=== PATIENT | female | born 1990 | race Caucasian/White ===

== ENCOUNTER → 2023-05-25 14:27 | Outpatient (BNVA) | payer MEDICAID, SELFPAY | PROVIDERS: Visit Provider Obstetrics & Gynecology | DX: Z34.90 Encounter for supervision of normal pregnancy, unspecified, unspecified trimester (principal); Z3A.00 Weeks of gestation of pregnancy not specified | CPT/HCPCS: 81000 ==

== ENCOUNTER → 2023-06-03 09:56 | Outpatient (BNVA) | payer MEDICAID, SELFPAY | PROVIDERS: Referring Provider Obstetrics & Gynecology; Visit Provider Obstetrics & Gynecology | DX: Z34.90 Encounter for supervision of normal pregnancy, unspecified, unspecified trimester (principal); Z3A.00 Weeks of gestation of pregnancy not specified | CPT/HCPCS: 76801 ==

== ENCOUNTER → 2023-06-24 08:55 | Outpatient (BNVA) | payer MEDICAID, SELFPAY | PROVIDERS: Visit Provider Obstetrics & Gynecology | DX: Z34.00 Encounter for supervision of normal first pregnancy, unspecified trimester (principal) | CPT/HCPCS: 80307; 84315; 84443; 85027; 86592; 86762; 86803; 86850; 86900; 87086; 87340; 87491; 87591; 87624; 87806 ==

== ENCOUNTER → 2023-07-20 09:55 | Outpatient (BNVA) | payer MEDICAID, SELFPAY | PROVIDERS: Visit Provider Nurse Practitioner Women's Health | DX: Z34.00 Encounter for supervision of normal first pregnancy, unspecified trimester (principal) | CPT/HCPCS: 80307; 82950; 84315; 87086 ==

== ENCOUNTER 2023-07-23 09:50 | Outpatient (CLI) | payer MEDICAID, SELFPAY ==
[2023-07-27 18:01] LABS: AFP Calculted Gestational Age 15.9 weeks; AFP Donor Age: Egg Retrieval NOT GIVEN; AFP Donor Egg NO; AFP EDD Gestational Age Meth ULTRASOUND; AFP Hx of Neural Tube Defects NO; AFP Insulin Depend Diabetic NO; AFP Maternal Weight 184 lbs; AFP Mother's Ethnic Origin CAUCASIAN; AFP Number of Fetuses 1; AFP Prev Pregancy Down Synd NO; AFP Repeat Specimen NO; Alpha-1-Fetoprotein 23.8 ng/mL; Alpha-1-Fetoprotein MoM 0.83; Risk for Open Neural Tube Defe <1 IN 5000
== END 2023-07-23 09:51 | disposition home or self-care (01) ==
PROVIDERS: PCP Obstetrics & Gynecology; Visit Provider Nurse Practitioner Women's Health
DX: Z34.00 Encounter for supervision of normal first pregnancy, unspecified trimester (principal)
CPT/HCPCS: 36415; 82105

== ENCOUNTER → 2023-08-18 09:35 | Outpatient (BNVA) | payer MEDICAID, SELFPAY | PROVIDERS: Visit Provider Obstetrics & Gynecology | DX: Z34.92 Encounter for supervision of normal pregnancy, unspecified, second trimester (principal); Z3A.17 17 weeks gestation of pregnancy | CPT/HCPCS: 76815 ==

== ENCOUNTER → 2023-09-14 09:10 | Outpatient (BNVA) | payer MEDICAID, SELFPAY | PROVIDERS: Visit Provider Obstetrics & Gynecology | DX: Z34.00 Encounter for supervision of normal first pregnancy, unspecified trimester (principal); Z3A.21 21 weeks gestation of pregnancy | CPT/HCPCS: 76805 ==

== ENCOUNTER → 2023-10-13 07:58 | Outpatient (BNVA) | payer MEDICAID, SELFPAY | PROVIDERS: Visit Provider Obstetrics & Gynecology | DX: Z34.92 Encounter for supervision of normal pregnancy, unspecified, second trimester (principal); Z3A.21 21 weeks gestation of pregnancy | CPT/HCPCS: 76816; 84315 ==

== ENCOUNTER → 2023-10-27 09:53 | Outpatient (BNVA) | payer MEDICAID, SELFPAY | PROVIDERS: Visit Provider Obstetrics & Gynecology | DX: Z34.02 Encounter for supervision of normal first pregnancy, second trimester (principal); Z3A.00 Weeks of gestation of pregnancy not specified | CPT/HCPCS: 82950; 84315; 85025 ==

== ENCOUNTER → 2023-11-23 08:46 | Outpatient (BNVA) | payer MEDICAID, SELFPAY | PROVIDERS: Visit Provider Obstetrics & Gynecology | DX: Z34.93 Encounter for supervision of normal pregnancy, unspecified, third trimester (principal); Z3A.35 35 weeks gestation of pregnancy | CPT/HCPCS: 76816; 84315 ==

== ENCOUNTER → 2023-12-16 08:08 | Outpatient (BNVA) | payer MEDICAID, SELFPAY | PROVIDERS: Visit Provider Nurse Practitioner Women's Health | DX: Z34.02 Encounter for supervision of normal first pregnancy, second trimester (principal) | CPT/HCPCS: 84315; 87081 ==

== ENCOUNTER 2023-12-17 07:43 | Outpatient (CLI) | payer MEDICAID, SELFPAY ==
[2023-12-17 07:55] VITALS: BMI 34.1
[2023-12-17 08:01] VITALS: BP 120/68; PULSE 75
[2023-12-17 08:21] VITALS: BP 108/67; PULSE 71
[2023-12-17] MEDS: acetaminophen 500 mg Tablet 1000 MG PO (08:22)
[2023-12-17 08:41] VITALS: BP 118/71; PULSE 81
[2023-12-17] MEDS: NIFEdipine ER (24 hr) 30 mg Tablet PO (08:41)
[2023-12-17 09:00] VITALS: BP 118/71; PULSE 81
== END 2023-12-17 09:00 | disposition home or self-care (01) ==
LOC: OPOB 07:48 → OBGYN 07:49
PROVIDERS: Visit Provider Obstetrics & Gynecology
DX: O26.899 Other specified pregnancy related conditions, unspecified trimester (principal); Z3A.00 Weeks of gestation of pregnancy not specified; M54.9 Dorsalgia, unspecified
CPT/HCPCS: 59025; 99211

== ENCOUNTER → 2023-12-21 09:57 | Outpatient (BNVA) | payer MEDICAID, SELFPAY | PROVIDERS: Visit Provider Obstetrics & Gynecology | DX: Z34.90 Encounter for supervision of normal pregnancy, unspecified, unspecified trimester (principal); Z3A.00 Weeks of gestation of pregnancy not specified | CPT/HCPCS: 81000 ==

== ENCOUNTER 2024-01-25 14:40 | Outpatient (CLI) | payer MEDICAID, SELFPAY ==
[2024-01-25 14:40] VITALS: BMI 37.8
[2024-01-25 15:16] VITALS: BP 115/75; PULSE 88
[2024-01-25 15:18] VITALS: BP 115/75; PULSE 88; RESP 16
[2024-01-25 16:16] VITALS: BP 113/75; PULSE 86
[2024-01-25 16:39] LABS: Basophils % 0.4 %; Eosinophils % 0.5 %; Hematocrit 36.5 % (36-47); Lymphocytes % 27.3 %; Mean Corpuscular Hemoglobin 31.5 pg (27-33); Mean Corpuscular Volume 92.6 fl (85-98); Mean Platelet Volume 10.6 fL (7.4-10.4); Monocytes # 0.4 10^3/uL (0.2-0.9); Monocytes % 4.8 %; Neutrophils # 4.91 10^3/uL (1.8-7.7); Neutrophils % 66.7 %; Nucleated Red Blood Cells % 0 %; Platelet Count 282 10^3/cmm (157-399); Red Blood Count 3.94 10^6/uL (3.85-5.65); White Blood Count 7.36 10^3/uL (3.29-11.43)
--- NOTE | 2024-01-25 16:56 | PC.NURSE ---
Dr jackson arrived to talk with patient and get consent for induction of labor with the use of cytotec and consult on the induction of labor, dr jackson gave the patient the options of being induced or go home and be induced at a later date, jose de jesus decided to return home and come back on a later date
[2024-01-25 17:12] VITALS: BP 120/78; PULSE 127
== END 2024-01-25 17:13 | disposition home or self-care (01) ==
LOC: OPOB 14:45 → OBGYN 14:47 → OPOB 14:56 → OBGYN 15:01 → OPOB 16:50 → OBGYN 16:56
PROVIDERS: Visit Provider Obstetrics & Gynecology
DX: O26.899 Other specified pregnancy related conditions, unspecified trimester (principal); Z3A.00 Weeks of gestation of pregnancy not specified
CPT/HCPCS: 36415; 59025; 85025; 86850; 86900; 99211

== ENCOUNTER 2024-01-30 07:16 | Inpatient (IN) | payer MEDICAID, SELFPAY ==
[2024-01-30] VITALS (58 sets, daily range): BP systolic 106–149; BP diastolic 52–81; PULSE 64–106; TEMP 36–36.5; O2SAT 90–98; BMI 34.1
[2024-01-30] MEDS: dextrose 5%-lactated ringers 1,000 ML 125 ML IV (08:43)
[2024-01-30] MEDS: miSOPROStol 100 mcg tablet 25 MCG VAGINAL ×2 (08:43→16:45)
[2024-01-30] MEDS: acetaminophen 325 mg Tablet 650 MG PO (18:43)
--- NOTE | 2024-01-30 21:34 | PM.OBGYHP ---
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 Risk and benefits have been reviewed including the possibility of nonreassuring monitoring which may require section delivery. Patient's records has been reviewed. Patient admits to smoking 1/2 pack cigarettes per day. External monitoring?reassuring After completion of 4 hours of the second Cervidil placement patient was examined at 9 PM and noted to be 7 cm by nursing staff. Upon my arrival patient's cervix was reexamined with an anterior lip with bulging membranes. AROM performed with clear fluid noted. Reviewed delivery and the possibility that patient may not get an epidural due to a section currently going on. Patient understands. Present Details : 1 Para: 0 Labs Rubella: Immune RPR: Negative GBS: Negative L&D/Induction Specific History Other Information: Cervidil Review of Systems General: Reports: 10 or more systems reviewed and unremarkable except in HPI and below Medications/Allergies Home Medications Medication Instructions Recorded Confirmed Last Taken Type prenat.vits,adamaris,utn-[id number] 1 tab PO DAILY 05/25/23 01/25/24 Unknown History Allergies Allergy/AdvReac Type Severity Reaction Status Date / Time codeine Allergy Intermediate Halucinatio Verified 01/30/24 08:58 ns PFSH FUNERAL ARRANGER PFSH: Family History Denies family history of Colon cancer Ovarian cancer Diabetes Heart disease Hyperlipidemia Breast cancer Hypertension Uterine cancer Thyroid disease Stroke Other Female Reproductive History: Hx Age of Menarche: 12 Duration of menses: 6-7 days Date of Last Menstrual Period: 04/03/23 Cycle Length: 28 to 30 days Menstrual flow: normal/abnormal: normal Sexual History: Are you sexually active?: Yes More than 5 What is your sexual preference?: Heterosexual History History History 1 Term Miscarriages/Ectopic Living Children Care EMILY Calculator Estimated Delivery Date Method Current WG Current Estimate 01/23/24 Ultrasound #1 41w 0d Other Estimates 01/08/24 LMP (Certain) 43w 1d 01/20/24 Ultrasound #2 41w 3d Expected Delivery Route/Plan Vaginal Vitals/I&O/Wt Last Vital Signs Temp 96.8 F L 01/30/24 16:45 Pulse 82 01/30/24 21:25 BP 109/62 01/30/24 21:25 O2 Del Method Room Air 01/30/24 17:16 01/30/24 01/30/24 01/30/24 06:59 14:59 22:59 Intake Total 240 / 240 Balance 240 / 240 Weight last 48 hrs Weight 90.265 kg Physical Exam Const: COMMON NORMALS: no acute distress, patient oriented x3, healthy appearing, alert and well nourished HENMT: COMMON NORMALS: normocephalic, moist oral mucous membranes and dentition normal Resp: COMMON NORMALS: clear to auscultation bilaterally Cardio: COMMON NORMALS: regular rate and regular rhythm Back/Pelvis: OTHER: Abdomen?soft, gravid, negative CVA tenderness Pelvic exam as above Extremity: COMMON NORMALS: normal to inspection, no clubbing, cyanosis or edema and no calf tenderness Neuro: COMMON NORMALS: patient oriented x3, CN's II-XII intact bilaterally, moves all extremities and deep tendon reflexes 2+ bilaterally Results Labs OB ([facility]): Obstetrics US 11/23/23 Blood Type A Positive 01/30/24 Antibody Screen Negative 01/30/24 Hct 36.5 % (36-47) 01/25/24 Hgb 12.40 g/dL (11.27-16.99) 01/25/24 Rho(D) Type Rh positive 01/30/24 Plt Count 282 10^3/cmm (157-399) 01/25/24 Hep Bs Antigen Non-reactive (Nonreactive) 06/24/23 Hepatitis C Antibody Non-reactive (Nonreactive) 06/24/23 Rubella IgG Antibody 47.1 IU/mL (0.0-10.0) H 06/24/23 RPR Nonreactive (Nonreactive) 06/24/23 HIV 1&2 Ab & HIV 1 Ag Non-reactive (Non-Reactiv) 06/24/23 TSH 0.49 uIU/mL (0.27-4.20) 06/24/23 C.trachomatis RNA (TMA) Not detected (NOT DETECTED) 06/24/23 N.gonorrhoeae RNA (TMA) Not detected (NOT DETECTED) 06/24/23 T. vaginalis Amp RNA Not detected (NOT DETECTED) 06/24/23 Chlamydia/GC Comment See note 06/24/23 Cystic Fibrosis Screen Negative 06/24/23 Gest Glucose Tolerance 91 mg/dL (70-139) 10/27/23 Urine Opiates Screen Negative ng/mL (Negative) 07/20/23 Ur Barbiturates Screen Negative ng/mL (Negative) 07/20/23 Ur Phencyclidine Scrn Negative ng/mL (Negative) 07/20/23 Ur Amphetamines Screen Negative ng/mL (Negative) 07/20/23 U Benzodiazepines Scrn Negative ng/mL (Negative) 07/20/23 Urine Cocaine Screen Negative ng/mL (Negative) 07/20/23 U Marijuana (THC) Screen Negative ng/mL (Negative) 07/20/23 Micro Urine Specimen 07/20/23 Pap Smear Interpret See note 06/24/23 A&P Assessment and plan (1) Supervision of normal first : GBS negative Qualifiers: Trimester: second trimester Qualified Code(s): Z34.02 - Encounter for supervision of normal first , second trimester (2) Advanced maternal age (AMA) in : (3) 41 weeks gestation of : Plan Patient was admitted to labor and delivery for cervical ripening/induction of labor. Attestations Medical Necessity Statement*: Patient admitted to labor and delivery for cervical ripening/induction of labor. Coding Level of Care Code Acute Code for Chg Fwd Diagnoses Encounter for supervision of normal first in second trimester Z34.02 Trimester: second trimester Advanced maternal age (AMA) in 41 weeks gestation of O48.0; Z3A.41
[2024-01-30] MEDS: lactated ringers 1,000 ML 999 ML IV ×2 (21:42→23:30)
[2024-01-30] MEDS: ROPivacaine syringe 100 MG/50 ML SYRINGE 10 MG EPIDURAL (22:20)
--- NOTE | 2024-01-30 22:24 | ANES.PREANE2 ---
Pre-Anesthetic Assessment Height/Weight: Height 1.63 m Weight 90.265 kg Temp Pulse BP Pulse Ox O2 Del Method 96.8 F L 74 128/58 97 Room Air 01/30/24 16:45 01/30/24 22:20 01/30/24 22:20 01/30/24 22:20 01/30/24 17:16 Social Tobacco and No alcohol Exam alert and oriented x 3 Pulmonary smoker Anesthetic Plan ASA status: 2 Anesthesia: Regional (specify below) (Labor Epidural) Medications/Allergies Home Medications Medication Instructions Recorded Confirmed Last Taken Type prenat.vits,adamaris,djz-hvik-cjvce 1 tab PO DAILY 05/25/23 01/25/24 Unknown History Allergies Allergy/AdvReac Type Severity Reaction Status Date / Time codeine Allergy Intermediate Halucinatio Verified 01/30/24 08:58 ns Current Medications Generic Name Dose Route Start Last Admin Trade Name Freq PRN Reason Stop Dose Admin Acetaminophen 650 mg 01/30/24 07:20 01/30/24 18:43 Acetaminophen 325 Mg Tablet PO 650 mg Q6H PRN Administration Mild pain or temp > 100.4 Dextrose/Lactated Ringer's 1,000 mls @ 125 mls/hr 01/30/24 07:30 01/30/24 08:43 Dextrose 5%-Lactated Ringers IV 125 mls/hr .Q8H STEVE Administration Lactated Ringer's 1,000 mls @ 999 mls/hr 01/30/24 21:02 01/30/24 21:42 Lactated Ringers IV 999 mls/hr .Q1H1M PRN Administration See label comments PFSH Anesthesia Family History Denies family history of Colon cancer Ovarian cancer Diabetes Heart disease Hyperlipidemia Breast cancer Hypertension Uterine cancer Thyroid disease Stroke Female Reproductive History : 1 Data Anesthesia Blood Bank 01/30/24 07:50 Blood Type A Positive Rho(D) Type Rh positive Antibody Screen Negative Cardiac Studies: No Data to Display
--- NOTE | 2024-01-30 22:39 | P.ANES_ITS ---
Anesthesia Procedures Procedure/Date: 01/30/24 Epidural: Time Out Performed: Yes Consents Signed: Procedure Consent Consent: requested by attending/covering physician, from patient, risks and benefits reviewed and patient agrees to proceed Lumbar Level: L4-L5 Epidural position: sitting Epidural procedure: sterile prep of area, 1% lidocaine to numb the area, 18 g needle, negative for paresthesia passed, neg for paresthesia, test dose given, 1.5% xylocaine 1:200k epi, 0.2% Ropivacaine bolus ml (5), placed PCEA, no systemic response, sterile dressing applied, L.U.D. no apparent complications and 0.2% Ropiavacaine @ mls/hr (10) Additional Comments: AVILA at 5cm, catheter easily threaded to 5cm in the space. VS monitored and remained stable throughout. Pt reporting decrease in pain with contractions. Pt educated on CHUTE LOADER.
--- NOTE | 2024-01-30 23:34 | P.PN_ITS ---
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 Will augment with Pitocin for more effective contractions. Pt agrees. EFM- Cat 1. Labor: Station: -2 Amniotic Membrane Status: Ruptured Monitor Mode: Palpation Contraction Pattern: Regular Status: Category I Vitals/I&O/Wt Last Vital Signs Temp 96.8 F L 01/30/24 16:45 Pulse 86 01/30/24 23:26 BP 134/64 01/30/24 23:26 Pulse Ox 95 01/30/24 23:00 O2 Del Method Room Air 01/30/24 17:16 01/30/24 01/30/24 01/31/24 14:59 22:59 06:59 Intake Total 1240 / 1240 Balance 1240 / 1240 Weight last 48 hrs Weight 90.265 kg A&P Assessment and plan (1) 41 weeks gestation of : (2) Advanced maternal age (AMA) in : (3) Supervision of normal first : Qualifiers: Trimester: second trimester Qualified Code(s): Z34.02 - Encounter for supervision of normal first , second trimester Plan Augment labor Attestations Medical Necessity Statement*: Management of Cervical Ripening/Induction. Coding Level of Care Code Acute Code for Chg Fwd Diagnoses 41 weeks gestation of O48.0; Z3A.41 Advanced maternal age (AMA) in Encounter for supervision of normal first in second trimester Z34.02 Trimester: second trimester
[2024-01-30] MEDS: oxytocin 30 UNIT/500 ML BAG IV (23:47)
[2024-01-31] VITALS (44 sets, daily range): BP systolic 108–157; BP diastolic 54–93; PULSE 75–151; RESP 15–17; TEMP 36.4–36.9; O2SAT 95–99
[2024-01-31] MEDS: ROPivacaine syringe 100 MG/50 ML SYRINGE 10 MG EPIDURAL (01:40)
[2024-01-31] MEDS: lactated ringers 1,000 ML 999 ML IV (02:50)
[2024-01-31] MEDS: methylergonovine 0.2 mg/mL INJ 1 mL IM (03:17)
--- NOTE | 2024-01-31 03:28 | P.PCNOB_ITS ---
Delivery Note: Date of delivery: January 31, 2024 Pre-delivery diagnoses: 41wk IUP AMA GBS neg Post-delivery diagnoses: Moderate Meconium NC x 1 Procedure: viable female Op report anesthesia: Epidural Delivering Physician: Joey Estimated blood loss (mL): 500 Post Delivery Diagnoses: Supervision of normal first : Qualifiers: Trimester: second trimester Qualified Code(s): Z34.02 - Encounter for supervision of normal first , second trimester Delivery: 33-year-old female G1, P1 delivered a vi able female 6 pounds 6 ounces over first-degree vaginal laceration. The vertex presented SHAZIA with tight nuchal cord. The cord was clamped and cut followed by delivery of the anterior then posterior shoulders with the remainder of the baby's body to follow. A copious amount of moderately thick meconium stained amniotic fluid followed the delivery. The baby was placed on the warmer dried and stimulated. DeLee suction of approximate 4 cc of meconium. Robust cry resulted. Cord pH and cord blood was drawn and handed off. The uterus was massaged and the placenta presented in a You presentation with trailing membranes. IV Pitocin solution was started in a bolus manner. The uterus firmed, History History History 1 Term 1 Miscarriages/Ectopic Living Children 1 A&P Assessment and plan (1) 41 weeks gestation of : S/p viable female Began care. (2) Advanced maternal age (AMA) in : (3) Supervision of normal first : Qualifiers: Trimester: second trimester Qualified Code(s): Z34.02 - Encounter for supervision of normal first , second trimester Plan Augment labor Coding Level of Care Code Acute Code for Chg Fwd Diagnoses 41 weeks gestation of O48.0; Z3A.41 Advanced maternal age (AMA) in Encounter for supervision of normal first in second trimester Z34.02 Trimester: second trimester
[2024-01-31] MEDS: ondansetron 2 mg/ML SDV 2 mL 4 MG IVP (05:29)
[2024-01-31] MEDS: ibuprofen 800 mg tablet PO ×3 (09:09→20:55)
[2024-01-31] MEDS: PRENATAL VIT NO.130/IRON/FOLIC 1 EACH TABLET PO (09:09)
[2024-01-31] MEDS: docusate sodium 100 mg Capsule PO ×2 (09:09→17:02)
--- NOTE | 2024-01-31 12:44 | PM.OBGYPN ---
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 Patient is bottlefeeding baby but would like to breast-feed if the nipple shield will help. Patient is ambulating and voiding without difficulty. She denies abdominal or pelvic pain or excessive bleeding. She is tolerating a regular diet. Labor: Station: -1 Amniotic Membrane Status: Ruptured Monitor Mode: Palpation Contraction Pattern: Regular Status: Category I Vitals/I&O/Wt Last Vital Signs Temp 98.0 F 01/31/24 06:00 Pulse 84 01/31/24 08:00 Resp 16 01/31/24 08:21 BP 118/80 01/31/24 08:00 Pulse Ox 97 01/31/24 08:00 O2 Del Method Room Air 01/31/24 08:00 01/30/24 01/31/24 01/31/24 22:59 06:59 14:59 Intake Total 1240 / 1240 3386.383 / 4626.383 Balance 1240 / 1240 3386.383 / 4626.383 Weight last 48 hrs Weight 90.265 kg Physical Exam Back/Pelvis: OTHER: Abdomen?soft, fundal height below the umbilicus and nontender. Lochia?light. Extremity: COMMON NORMALS: normal to inspection, no clubbing, cyanosis or edema and no calf tenderness Urinary Catheter Management: Ragsdale: Cath Placed During This Visit: yes, but has since been removed by the nurse Reason for Continuing Indwelling Catheter: Decision to DC Catheter Urinary Catheter Date of Insertion: 01/30/24 Urinary Catheter Time of Insertion: 23:40 Date Urinary Catheter Removed: 01/31/24 Time Urinary Catheter Discontinued: 01:56 A&P Assessment and plan (1) 41 weeks gestation of : S/p viable female Began care. (2) Advanced maternal age (AMA) in : (3) Supervision of normal first : Qualifiers: Trimester: second trimester Qualified Code(s): Z34.02 - Encounter for supervision of normal first , second trimester Plan Augment labor Attestations Medical Necessity Statement*: Patient was admitted for cervical ripening/IOL. Coding Level of Care Code Acute Code for Chg Fwd Diagnoses 41 weeks gestation of O48.0; Z3A.41 Advanced maternal age (AMA) in Encounter for supervision of normal first in second trimester Z34.02 Trimester: second trimester
[2024-01-31 15:19] LABS: Basophils % 0.1 %; Eosinophils % 0.1 %; Hematocrit 27.8 % (36-47); Lymphocytes # 1.7 10^3/uL (0.8-4.8); Lymphocytes % 12.9 %; Mean Corpuscular HGB Conc 34.2 g/dL (30-55); Mean Corpuscular Hemoglobin 31.5 pg (27-33); Mean Corpuscular Volume 92.1 fl (85-98); Mean Platelet Volume 10.6 fL (7.4-10.4); Monocytes # 0.8 10^3/uL (0.2-0.9); Neutrophils # 10.85 10^3/uL (1.8-7.7); Neutrophils % 80.5 %; Nucleated Red Blood Cells % 0 %; Platelet Count 217 10^3/cmm (157-399); Red Blood Count 3.02 10^6/uL (3.85-5.65); Red Cell Distribution Width 12.9 % (12.1-15.1); White Blood Count 13.48 10^3/uL (3.29-11.43)
[2024-02-01 04:15] VITALS: BP 100/64; PULSE 62; RESP 14; TEMP 36.4; O2SAT 97
--- NOTE | 2024-02-01 07:21 | ANE.PACU2 ---
Inpatient post-anesthesia follow up: Airway intact: Yes Vital signs: Temperature 97.8 F Pulse Rate 70 Respiratory Rate 18 Blood Pressure 107/65 Pulse Oximetry 96 Oxygen Delivery Me thod Room Air Oxygen Flow Rate Fraction of Inspir ed Oxygen Hydration adequate: Yes Nausea and vomiting: No Pain level: 1 Mental status: Baseline Epidural Start/End: Epidural Start Date: 01/30/24 Epidural Start Time: 22:20 Epidural End Date: 01/31/24 Epidural End Time: 03:25
[2024-02-01] MEDS: PRENATAL VIT NO.130/IRON/FOLIC 1 EACH TABLET PO (08:39)
[2024-02-01] MEDS: ibuprofen 800 mg tablet PO (08:39)
[2024-02-01] MEDS: docusate sodium 100 mg Capsule PO (08:39)
[2024-02-01 09:10] VITALS: BP 107/65; PULSE 70; RESP 18; TEMP 36.6; O2SAT 96
--- NOTE | 2024-02-01 09:25 | PM.OBGYDC ---
Discharge Providers PAPER SUPERVISOR Date of Admission: 01/30/24 07:16 Date of Discharge: 02/01/24 Attending Provider at Admission: Gustavo Montalvo MD Attending Provider at Discharge: Kim Cook DO Diagnoses at Discharge Discharge Diagnosis (1) 41 weeks gestation of : Status: Acute (2) Advanced maternal age (AMA) in : Status: Acute (3) Supervision of normal first : Status: Acute Qualifiers: Trimester: second trimester Qualified Code(s): Z34.02 - Encounter for supervision of normal first , second trimester Reason for Visit Reason for Visit: induction Hospital Course Hospital Course 33-year-old female G1, P1 delivered via viable female 6 pounds 6 ounces with primary vaginal laceration, repaired. Patient is ambulating, tolerating a regular diet and voiding without difficulties. Patient is caring for her without nursing assistance. She is bottlefeeding and baby is doing well. Discharge expectations and care has been reviewed in great detail and patient verbalizes understanding. Information Peripartum Data: Infant Delivery Method: Vaginal Laceration description: Vaginal - 1st Degree Physical Exam Back/Pelvis: OTHER: Abdomen?soft, fundus firm well below umbilicus. Lochia light. Extremity: COMMON NORMALS: normal to inspection, no clubbing, cyanosis or edema and no calf tenderness Urinary Catheter Management: Ragsdale: Cath Placed During This Visit: yes, but has since been removed by the nurse Reason for Continuing Indwelling Catheter: Decision to DC Catheter Urinary Catheter Date of Insertion: 01/30/24 Urinary Catheter Time of Insertion: 23:40 Date Urinary Catheter Removed: 01/31/24 Time Urinary Catheter Discontinued: 01:56 History History History 1 Term 1 Miscarriages/Ectopic Living Children 1 Discharge Data Studies Completed and Pending Pending at discharge Category Date Time Status Hemagram Timed Lab 01/31/24 15:06 Ordered Laboratory Results WBC 13.48 10^3/uL (3.29-11.43) H 01/30/24 15:10 RBC 3.02 10^6/uL (3.85-5.65) L 01/30/24 15:10 Hgb 9.50 g/dL (11.27-16.99) L 01/30/24 15:10 Hct 27.8 % (36-47) L 01/30/24 15:10 MCV 92.1 fl (85-98) 01/30/24 15:10 MCH 31.5 pg (27-33) 01/30/24 15:10 MCHC 34.2 g/dL (30-55) 01/30/24 15:10 RDW 12.9 % (12.1-15.1) 01/30/24 15:10 Plt Count 217 10^3/cmm (157-399) 01/30/24 15:10 MPV 10.6 fL (7.4-10.4) H 01/30/24 15:10 Neut % (Auto) 80.5 % 01/30/24 15:10 Lymph % (Auto) 12.9 % 01/30/24 15:10 [place] % (Auto) 6.0 % 01/30/24 15:10 Eos % (Auto) 0.1 % 01/30/24 15:10 Baso % (Auto) 0.1 % 01/30/24 15:10 Neut # (Auto) 10.85 10^3/uL (1.8-7.7) H 01/30/24 15:10 Lymph # (Auto) 1.7 10^3/uL (0.8-4.8) 01/30/24 15:10 [place] # (Auto) 0.8 10^3/uL (0.2-0.9) 01/30/24 15:10 Eos # (Auto) 0.0 10^3/uL (0.0-0.8) 01/30/24 15:10 Baso # (Auto) 0.0 10^3/uL (0.0-0.1) 01/30/24 15:10 Nucleated RBC % (auto) 0 % 01/30/24 15:10 Nucleated RBCs # 0.0 /100WBC 01/30/24 15:10 Blood Type A Positive 01/30/24 07:50 Rho(D) Type Rh positive 01/30/24 07:50 Antibody Screen Negative 01/30/24 07:50 Vitals Last Vital Signs Temp 97.8 F 02/01/24 09:10 Pulse 70 02/01/24 09:10 Resp 18 02/01/24 09:10 BP 107/65 02/01/24 09:10 Pulse Ox 96 02/01/24 09:10 O2 Del Method Room Air 02/01/24 09:10 Results Labs OB ([facility]): Obstetrics US 11/23/23 Blood Type A Positive 01/30/24 Antibody Screen Negative 01/30/24 Hct 27.8 % (36-47) L 01/30/24 Hgb 9.50 g/dL (11.27-16.99) L 01/30/24 Rho(D) Type Rh positive 01/30/24 Plt Count 217 10^3/cmm (157-399) 01/30/24 Hep Bs Antigen Non-reactive (Nonreactive) 06/24/23 Hepatitis C Antibody Non-reactive (Nonreactive) 06/24/23 Rubella IgG Antibody 47.1 IU/mL (0.0-10.0) H 06/24/23 RPR Nonreactive (Nonreactive) 06/24/23 HIV 1&2 Ab & HIV 1 Ag Non-reactive (Non-Reactiv) 06/24/23 TSH 0.49 uIU/mL (0.27-4.20) 06/24/23 C.trachomatis RNA (TMA) Not detected (NOT DETECTED) 06/24/23 N.gonorrhoeae RNA (TMA) Not detected (NOT DETECTED) 06/24/23 T. vaginalis Amp RNA Not detected (NOT DETECTED) 06/24/23 Chlamydia/GC Comment See note 06/24/23 Cystic Fibrosis Screen Negative 06/24/23 Gest Glucose Tolerance 91 mg/dL (70-139) 10/27/23 Urine Opiates Screen Negative ng/mL (Negative) 07/20/23 Ur Barbiturates Screen Negative ng/mL (Negative) 07/20/23 Ur Phencyclidine Scrn Negative ng/mL (Negative) 07/20/23 Ur Amphetamines Screen Negative ng/mL (Negative) 07/20/23 U Benzodiazepines Scrn Negative ng/mL (Negative) 07/20/23 Urine Cocaine Screen Negative ng/mL (Negative) 07/20/23 U Marijuana (THC) Screen Negative ng/mL (Negative) 07/20/23 Micro Urine Specimen 07/20/23 Pap Smear Interpret See note 06/24/23 Discharge Plan Discharge Patient Disposition: Home Condition: Stable Prescriptions: Continued prenat.vits,adamaris,[id number] Tablet 1 tab PO DAILY Discharge Orders: Discharge Order (Routine); Ordered 04/29/24 Ordered By: Kim Cook Discharge Diet: Regular Discharge Activity: Increase activity as tolerated Patient Instructions: Opioid Safety Activity Restrictions/Additional Instructions: No heavy lifting pushing or pulling No sexual intercourse x 6 weeks Assessment: S/p viable female 41-week gestation?delivered Asymptomatic anemia Advanced maternal age Plan of Treatment: Discharge patient to home for continued recovery. Patient to follow-up in clinic in 4 to 6 weeks for evaluation. Patient to continue vitamins with iron Discharge Attestations PAPER SUPERVISOR Time Spent in Discharge Care*: less than 30 min Coding Level of Care Code Acute Code for Chg Fwd Diagnoses 41 weeks gestation of O48.0; Z3A.41 Advanced maternal age (AMA) in Encounter for supervision of normal first in second trimester Z34.02 Trimester: second trimester
[2024-02-01 11:01] VITALS: BP 107/65; PULSE 70; RESP 18; TEMP 36.6; O2SAT 96
== END 2024-02-01 11:00 | disposition home or self-care (01) | DRG 807 ==
PROVIDERS: Admitting Provider Obstetrics & Gynecology; Visit Provider Obstetrics & Gynecology
DX: O48.0 Post-term pregnancy (principal); Z37.0 Single live birth; Z3A.41 41 weeks gestation of pregnancy; O77.0 Labor and delivery complicated by meconium in amniotic fluid; O99.334 Smoking (tobacco) complicating childbirth; F17.210 Nicotine dependence, cigarettes, uncomplicated; O69.81X0 Labor and delivery complicated by cord around neck, without compression, not applicable or unspecified; O70.0 First degree perineal laceration during delivery
CPT/HCPCS: 36415; 51702; 59025; 59409; 85025; 86850; 86900; 96372; J2210; J2405; J2590; J2795; J7120; J7121; J9999

== ENCOUNTER → 2024-03-14 15:30 | Outpatient (BNVA) | payer MEDICAID, SELFPAY | PROVIDERS: Visit Provider Obstetrics & Gynecology | DX: D64.9 Anemia, unspecified (principal) | CPT/HCPCS: 85025 ==